=== PATIENT | female | born 1980 | race Caucasian/White ===

== ENCOUNTER 2019-05-21 01:28 | Emergency (ER) | payer SELFPAY ==
[2019-05-21 01:30] VITALS: BP 136/111; PULSE 120; RESP 18; TEMP 36.8; O2SAT 96; BMI 17.2
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
[2019-05-21] MEDS: lidocaine 1% INJ 20 mL 3 ML INTRADERMA (02:23)
[2019-05-21] MEDS: ondansetron 2 mg/ML SDV 2 mL 4 MG IM (02:24)
[2019-05-21 02:26] VITALS: RESP 19
[2019-05-21] MEDS: morphine 4 mg/mL SDV 1 mL IM (02:26)
[2019-05-21] MEDS: tetanus-dipt-pertussis 0.5 mL SDV IM (02:27)
[2019-05-21 02:55] VITALS: BP 131/98; PULSE 111; RESP 18; O2SAT 95
== END 2019-05-21 02:57 | disposition home or self-care (01) ==
LOC: ER 02:42
PROVIDERS: Emergency Provider Nurse Practitioner Family
DX: S01.81XA Laceration without foreign body of other part of head, initial encounter (principal); Y04.2XXA Assault by strike against or bumped into by another person, initial encounter; F17.200 Nicotine dependence, unspecified, uncomplicated; Z23 Encounter for immunization
CPT/HCPCS: 12011; 12345; 70450; 70486; 72125; 72128; 90471; 90715; 96372; 99281; 99283; J2001; J2270; J2405

== ENCOUNTER → 2021-11-20 13:58 | Outpatient (BNVA) | payer MEDICAID, SELFPAY | PROVIDERS: Visit Provider Nurse Practitioner | DX: R10.30 Lower abdominal pain, unspecified (principal) | CPT/HCPCS: 74018 ==

== ENCOUNTER → 2021-11-30 11:44 | Day surgery (SDC) | payer MEDICAID, SELFPAY ==
[2021-11-30 11:55] VITALS: BP 129/81; PULSE 82; RESP 18; TEMP 36.4; O2SAT 98
[2021-11-30 12:14] LABS: Basophils # 0.1 10^3/uL (0.0-0.1); Basophils % 0.8 %; Eosinophils # 0.2 10^3/uL (0.0-0.8); Eosinophils % 2.2 %; Hematocrit 35.7 % (37.0-47.0); Hemoglobin 11.2 g/dL (11.5-15.3); Lymphocytes # 2.7 10^3/uL (0.8-4.8); Mean Corpuscular HGB Conc 31.4 g/dL (30.0-36.0); Mean Corpuscular Hemoglobin 30.4 pg (28.0-34.0); Mean Platelet Volume 8.8 fL (7.4-10.4); Monocytes # 0.6 10^3/uL (0.2-0.9); Monocytes % 5.7 %; Neutrophils # 7.01 10^3/uL (1.8-7.7); Neutrophils % 65.6 %; Nucleated Red Blood Cells % 0 %; Platelet Count 478 10^3/cmm (130-400); Red Blood Count 3.68 10^6/uL (4.1-5.3); Red Cell Distribution Width 15.7 % (12.1-15.1); White Blood Count 10.7 10^3/uL (4.0-10.0)
[2021-11-30 12:51] LABS: Alanine Aminotransferase < 5 U/L (0-33); Albumin Level 2.5 g/dL (3.5-5.2); Alkaline Phosphatase 85 U/L (35-105); Anion Gap 9.7 (5-19); Aspartate Amino Transferase 16 U/L (0-32); Blood Urea Nitrogen 2 mg/dL (6-20); C Reactive Protein 9.6 mg/L (0.0-4.9); Calcium 8.5 mg/dL (8.5-10.5); Carbon Dioxide 28 mmol/L (22-29); Chloride 99 mmol/L (98-107); Globulin 4.5 g/dL (1.3-4.6); Glomerular Filtration Rate 136.6 mL/min (90-130); Glucose 91 mg/dL (65-115); Osmolality Calculated 272 mOsm/kg (285-295); Potassium 3.7 mmol/L (3.5-5.1); Sodium 133 mmol/L (136-145); Total Bilirubin 0.2 mg/dL (0.15-1.2)
== END ==
PROVIDERS: Visit Provider Internal Medicine
DX: R78.81 Bacteremia (principal); K75.0 Abscess of liver
CPT/HCPCS: 36592; 80053; 82248; 85025; 86140

== ENCOUNTER → 2021-12-07 10:18 | Day surgery (SDC) | payer MEDICAID, SELFPAY ==
[2021-12-07 10:38] LABS: Basophils # 0.1 10^3/uL (0.0-0.1); Basophils % 1.3 %; Eosinophils # 0.2 10^3/uL (0.0-0.8); Eosinophils % 2.5 %; Hematocrit 37.8 % (37.0-47.0); Lymphocytes % 25.7 %; Mean Corpuscular HGB Conc 31.7 g/dL (30.0-36.0); Mean Corpuscular Hemoglobin 31.5 pg (28.0-34.0); Mean Corpuscular Volume 99.2 fl (81-99); Mean Platelet Volume 9.2 fL (7.4-10.4); Monocytes # 0.5 10^3/uL (0.2-0.9); Monocytes % 6.6 %; Nucleated Red Blood Cells % 0 %; Platelet Count 304 10^3/cmm (130-400); Red Blood Count 3.81 10^6/uL (4.1-5.3); Red Cell Distribution Width 17.1 % (12.1-15.1); White Blood Count 7.6 10^3/uL (4.0-10.0)
[2021-12-07 10:48] VITALS: BP 130/79; PULSE 79; RESP 18; TEMP 36.9; O2SAT 98
[2021-12-07 11:00] LABS: Alanine Aminotransferase < 5 U/L (0-33); Albumin Level 2.7 g/dL (3.5-5.2); Alkaline Phosphatase 82 U/L (35-105); Anion Gap 10.8 (5-19); Aspartate Amino Transferase 15 U/L (0-32); Blood Urea Nitrogen 2 mg/dL (6-20); Calcium 8.3 mg/dL (8.5-10.5); Carbon Dioxide 25 mmol/L (22-29); Chloride 98 mmol/L (98-107); Globulin 3.8 g/dL (1.3-4.6); Glomerular Filtration Rate 136.6 mL/min (90-130); Glucose 136 mg/dL (65-115); Osmolality Calculated 268 mOsm/kg (285-295); Potassium 3.8 mmol/L (3.5-5.1); Sodium 130 mmol/L (136-145); Total Bilirubin 0.2 mg/dL (0.15-1.2); Total Protein 6.5 g/dL (6.6-8.7)
== END ==
LOC: GILAB 10:19
PROVIDERS: Visit Provider Internal Medicine
DX: R78.81 Bacteremia (principal); K75.0 Abscess of liver
CPT/HCPCS: 36592; 80053; 82248; 85025; 86140

== ENCOUNTER 2021-12-28 10:09 | Outpatient (RCR) | payer MEDICAID, SELFPAY ==
[2021-12-14 10:42] LABS: Basophils # 0.1 10^3/uL (0.0-0.1); Basophils % 1.2 %; Eosinophils # 0.2 10^3/uL (0.0-0.8); Eosinophils % 2.7 %; Hematocrit 39.7 % (37.0-47.0); Hemoglobin 12.4 g/dL (11.5-15.3); Lymphocytes % 24.4 %; Mean Corpuscular HGB Conc 31.2 g/dL (30.0-36.0); Mean Corpuscular Hemoglobin 31.1 pg (28.0-34.0); Mean Corpuscular Volume 99.5 fl (81-99); Mean Platelet Volume 9.4 fL (7.4-10.4); Monocytes # 0.7 10^3/uL (0.2-0.9); Monocytes % 8.2 %; Neutrophils # 5.15 10^3/uL (1.8-7.7); Nucleated Red Blood Cells % 0 %; Platelet Count 211 10^3/cmm (130-400); Red Blood Count 3.99 10^6/uL (4.1-5.3); Red Cell Distribution Width 16.8 % (12.1-15.1); White Blood Count 8.2 10^3/uL (4.0-10.0)
[2021-12-14 10:59] VITALS: BP 145/89; PULSE 82; RESP 18; TEMP 36.7; O2SAT 97
[2021-12-14 11:19] LABS: Alanine Aminotransferase 6 U/L (0-33); Albumin Level 3.1 g/dL (3.5-5.2); Alkaline Phosphatase 82 U/L (35-105); Anion Gap 10.9 (5-19); Aspartate Amino Transferase 14 U/L (0-32); Blood Urea Nitrogen 3 mg/dL (6-20); C Reactive Protein 4.3 mg/L (0.0-4.9); Calcium 8.1 mg/dL (8.5-10.5); Carbon Dioxide 28 mmol/L (22-29); Chloride 95 mmol/L (98-107); Globulin 3.7 g/dL (1.3-4.6); Glomerular Filtration Rate 110.7 mL/min (90-130); Glucose 126 mg/dL (65-115); Osmolality Calculated 268 mOsm/kg (285-295); Potassium 3.9 mmol/L (3.5-5.1); Sodium 130 mmol/L (136-145); Total Bilirubin 0.2 mg/dL (0.15-1.2); Total Protein 6.8 g/dL (6.6-8.7)
[2021-12-21 10:00] VITALS: BP 140/99; PULSE 93; RESP 18; TEMP 36.7; O2SAT 98
[2021-12-21 10:15] LABS: Basophils # 0.1 10^3/uL (0.0-0.1); Basophils % 1.6 %; Eosinophils # 0.2 10^3/uL (0.0-0.8); Eosinophils % 2.6 %; Hematocrit 40.9 % (37.0-47.0); Lymphocytes # 2.2 10^3/uL (0.8-4.8); Lymphocytes % 34.5 %; Mean Corpuscular HGB Conc 31.8 g/dL (30.0-36.0); Mean Corpuscular Hemoglobin 31.1 pg (28.0-34.0); Mean Corpuscular Volume 97.8 fl (81-99); Mean Platelet Volume 8.9 fL (7.4-10.4); Monocytes # 0.7 10^3/uL (0.2-0.9); Monocytes % 10.3 %; Neutrophils # 3.24 10^3/uL (1.8-7.7); Neutrophils % 50.4 %; Nucleated Red Blood Cells % 0 %; Platelet Count 238 10^3/cmm (130-400); Red Blood Count 4.18 10^6/uL (4.1-5.3); Red Cell Distribution Width 16.4 % (12.1-15.1); White Blood Count 6.4 10^3/uL (4.0-10.0)
[2021-12-21 10:37] LABS: Alanine Aminotransferase 6 U/L (0-33); Albumin Level 3.3 g/dL (3.5-5.2); Alkaline Phosphatase 86 U/L (35-105); Anion Gap 13.5 (5-19); Aspartate Amino Transferase 15 U/L (0-32); Blood Urea Nitrogen 3 mg/dL (6-20); CRP High Sensitivity Cardiac < 0.150 mg/dL (0.0-0.3); Calcium 8.2 mg/dL (8.5-10.5); Carbon Dioxide 24 mmol/L (22-29); Chloride 101 mmol/L (98-107); Globulin 3.5 g/dL (1.3-4.6); Glomerular Filtration Rate 176.8 mL/min (90-130); Glucose 80 mg/dL (65-115); Osmolality Calculated 276 mOsm/kg (285-295); Potassium 3.5 mmol/L (3.5-5.1); Sodium 135 mmol/L (136-145); Total Bilirubin 0.2 mg/dL (0.15-1.2); Total Protein 6.8 g/dL (6.6-8.7)
[2021-12-28 10:15] VITALS: BP 131/86; PULSE 95; RESP 18; TEMP 36.7; O2SAT 93
[2021-12-28 10:51] LABS: Basophils # 0.1 10^3/uL (0.0-0.1); Basophils % 0.6 %; Eosinophils # 0.3 10^3/uL (0.0-0.8); Hematocrit 39.2 % (37.0-47.0); Hemoglobin 12.6 g/dL (11.5-15.3); Lymphocytes # 2.5 10^3/uL (0.8-4.8); Lymphocytes % 18.2 %; Mean Corpuscular HGB Conc 32.1 g/dL (30.0-36.0); Mean Corpuscular Hemoglobin 31.4 pg (28.0-34.0); Mean Corpuscular Volume 97.8 fl (81-99); Mean Platelet Volume 9.7 fL (7.4-10.4); Monocytes # 0.8 10^3/uL (0.2-0.9); Monocytes % 6.1 %; Neutrophils # 9.85 10^3/uL (1.8-7.7); Neutrophils % 72.7 %; Nucleated Red Blood Cells % 0 %; Platelet Count 260 10^3/cmm (130-400); Red Blood Count 4.01 10^6/uL (4.1-5.3); Red Cell Distribution Width 15.1 % (12.1-15.1); White Blood Count 13.5 10^3/uL (4.0-10.0)
[2021-12-28 11:04] LABS: Alanine Aminotransferase 13 U/L (0-33); Albumin Level 3.1 g/dL (3.5-5.2); Alkaline Phosphatase 132 U/L (35-105); Anion Gap 11.6 (5-19); Aspartate Amino Transferase 14 U/L (0-32); Blood Urea Nitrogen 4 mg/dL (6-20); C Reactive Protein 14.6 mg/L (0.0-4.9); Calcium 8.7 mg/dL (8.5-10.5); Carbon Dioxide 30 mmol/L (22-29); Chloride 96 mmol/L (98-107); Globulin 3.7 g/dL (1.3-4.6); Glomerular Filtration Rate 246.4 mL/min (90-130); Glucose 91 mg/dL (65-115); Osmolality Calculated 274 mOsm/kg (285-295); Potassium 3.6 mmol/L (3.5-5.1); Sodium 134 mmol/L (136-145); Total Bilirubin 0.2 mg/dL (0.15-1.2); Total Protein 6.8 g/dL (6.6-8.7)
[2022-01-04 10:05] VITALS: BP 153/110; PULSE 112; RESP 18; TEMP 37.1; O2SAT 96
[2022-01-04 10:17] LABS: Basophils # 0.1 10^3/uL (0.0-0.1); Basophils % 0.9 %; Eosinophils # 0.1 10^3/uL (0.0-0.8); Hematocrit 42.6 % (37.0-47.0); Hemoglobin 13.5 g/dL (11.5-15.3); Lymphocytes # 1.8 10^3/uL (0.8-4.8); Lymphocytes % 17.5 %; Mean Corpuscular HGB Conc 31.7 g/dL (30.0-36.0); Mean Corpuscular Hemoglobin 31.1 pg (28.0-34.0); Mean Corpuscular Volume 98.2 fl (81-99); Mean Platelet Volume 8.6 fL (7.4-10.4); Monocytes # 0.7 10^3/uL (0.2-0.9); Monocytes % 7.3 %; Neutrophils # 7.36 10^3/uL (1.8-7.7); Neutrophils % 72.7 %; Nucleated Red Blood Cells % 0 %; Platelet Count 327 10^3/cmm (130-400); Red Blood Count 4.34 10^6/uL (4.1-5.3); Red Cell Distribution Width 15.4 % (12.1-15.1); White Blood Count 10.1 10^3/uL (4.0-10.0)
[2022-01-04 10:38] LABS: Alanine Aminotransferase 7 U/L (0-33); Albumin Level 3.6 g/dL (3.5-5.2); Alkaline Phosphatase 114 U/L (35-105); Anion Gap 12.5 (5-19); Aspartate Amino Transferase 15 U/L (0-32); Blood Urea Nitrogen 4 mg/dL (6-20); Calcium 8.8 mg/dL (8.5-10.5); Carbon Dioxide 26 mmol/L (22-29); Chloride 99 mmol/L (98-107); Creatinine Clr Calc Pharmacy 99.6011; Globulin 3.5 g/dL (1.3-4.6); Glomerular Filtration Rate 136.6 mL/min (90-130); Glucose 119 mg/dL (65-115); Osmolality Calculated 276 mOsm/kg (285-295); Potassium 3.5 mmol/L (3.5-5.1); Sodium 134 mmol/L (136-145); Total Bilirubin 0.2 mg/dL (0.15-1.2); Total Protein 7.1 g/dL (6.6-8.7)
== END 2022-01-06 23:59 | disposition home or self-care (01) ==
LOC: GILAB 10:09
PROVIDERS: Visit Provider Internal Medicine
DX: R78.81 Bacteremia (principal); K75.0 Abscess of liver
CPT/HCPCS: 36592; 80053; 82248; 85025; 86140; 86141

== ENCOUNTER 2022-01-25 09:49 | Outpatient (RCR) | payer MEDICAID, SELFPAY ==
[2022-01-11 10:00] VITALS: BP 145/88; PULSE 80; RESP 18; TEMP 36.8; O2SAT 99
[2022-01-11 10:30] LABS: Basophils # 0.1 10^3/uL (0.0-0.1); Basophils % 1.8 %; Eosinophils # 0.2 10^3/uL (0.0-0.8); Eosinophils % 3.8 %; Hematocrit 40.3 % (37.0-47.0); Hemoglobin 12.9 g/dL (11.5-15.3); Lymphocytes # 1.8 10^3/uL (0.8-4.8); Mean Corpuscular Hemoglobin 31.5 pg (28.0-34.0); Mean Corpuscular Volume 98.3 fl (81-99); Monocytes # 0.5 10^3/uL (0.2-0.9); Monocytes % 9.5 %; Neutrophils % 49.7 %; Nucleated Red Blood Cells % 0 %; Platelet Count 328 10^3/cmm (130-400); Red Cell Distribution Width 14.9 % (12.1-15.1)
[2022-01-11 10:58] LABS: Alanine Aminotransferase 28 U/L (0-33); Albumin Level 3.4 g/dL (3.5-5.2); Alkaline Phosphatase 102 U/L (35-105); Anion Gap 11.7 (5-19); Aspartate Amino Transferase 37 U/L (0-32); Blood Urea Nitrogen 5 mg/dL (6-20); C Reactive Protein 4.2 mg/L (0.0-4.9); Calcium 8.6 mg/dL (8.5-10.5); Carbon Dioxide 28 mmol/L (22-29); Chloride 95 mmol/L (98-107); Globulin 3.1 g/dL (1.3-4.6); Glomerular Filtration Rate 176.8 mL/min (90-130); Glucose 104 mg/dL (65-115); Osmolality Calculated 270 mOsm/kg (285-295); Potassium 3.7 mmol/L (3.5-5.1); Sodium 131 mmol/L (136-145); Total Bilirubin 0.2 mg/dL (0.15-1.2); Total Protein 6.5 g/dL (6.6-8.7)
[2022-01-18 10:00] VITALS: BP 144/90; PULSE 100; RESP 18; TEMP 36.9; O2SAT 98
[2022-01-18 10:13] LABS: Basophils # 0.1 10^3/uL (0.0-0.1); Eosinophils # 0.1 10^3/uL (0.0-0.8); Eosinophils % 1.8 %; Hematocrit 42.3 % (37.0-47.0); Hemoglobin 13.7 g/dL (11.5-15.3); Lymphocytes # 2.2 10^3/uL (0.8-4.8); Lymphocytes % 27.5 %; Mean Corpuscular HGB Conc 32.4 g/dL (30.0-36.0); Mean Corpuscular Hemoglobin 31.4 pg (28.0-34.0); Mean Corpuscular Volume 96.8 fl (81-99); Mean Platelet Volume 9.3 fL (7.4-10.4); Monocytes # 0.5 10^3/uL (0.2-0.9); Monocytes % 6.9 %; Neutrophils # 4.89 10^3/uL (1.8-7.7); Neutrophils % 62.4 %; Nucleated Red Blood Cells % 0 %; Platelet Count 222 10^3/cmm (130-400); Red Blood Count 4.37 10^6/uL (4.1-5.3); Red Cell Distribution Width 14.9 % (12.1-15.1); White Blood Count 7.8 10^3/uL (4.0-10.0)
[2022-01-18 10:54] LABS: Alanine Aminotransferase 31 U/L (0-33); Albumin Level 3.9 g/dL (3.5-5.2); Alkaline Phosphatase 127 U/L (35-105); Aspartate Amino Transferase 64 U/L (0-32); Blood Urea Nitrogen 8 mg/dL (6-20); Calcium 8.9 mg/dL (8.5-10.5); Carbon Dioxide 26 mmol/L (22-29); Chloride 97 mmol/L (98-107); Globulin 3.2 g/dL (1.3-4.6); Glomerular Filtration Rate 136.6 mL/min (90-130); Glucose 87 mg/dL (65-115); Osmolality Calculated 272 mOsm/kg (285-295); Sodium 132 mmol/L (136-145); Total Bilirubin 0.2 mg/dL (0.15-1.2); Total Protein 7.1 g/dL (6.6-8.7)
--- NOTE | 2022-01-22 13:00 | PC.NURSE ---
Nurse from Roxanna To's office called stating patient had CT scan of abdomen and it is ok to discontinue PICC line. Pt has appointment on Tuesday at 0930 for line removal.
[2022-01-25 10:00] VITALS: BP 138/93; PULSE 120; RESP 18; TEMP 36.8; O2SAT 98
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
== END 2022-02-06 23:59 | disposition home or self-care (01) ==
LOC: GILAB 09:49
PROVIDERS: PCP Registered Nurse; Visit Provider Registered Nurse
DX: R78.81 Bacteremia (principal); K75.0 Abscess of liver
CPT/HCPCS: 36592; 80053; 82248; 85025; 86140; 99212

== ENCOUNTER 2022-02-26 01:57 | Emergency (ER) | payer MEDICAID, SELFPAY ==
[2022-02-26 02:01] VITALS: BP 152/110; PULSE 115; RESP 16; TEMP 36.8; O2SAT 99; BMI 16.6
--- NOTE | 2022-02-26 02:06 | ECG_ITS ---
[facility] Test Date: 2022-02-26 Pat Name: Marita Patel Department: Room: Gender: Female [employer] Officer: : 1980 Requested By: Chapito Rincon Order Number: [id number] Gilberto MD: Jesús Cardoso M.D. Measurements Intervals [place] Rate: 116 P: 64 CO: 92 QRS: 70 QRSD: 77 T: 68 QT: 309 QTc: 429 Interpretive Statements SINUS TACHYCARDIA WITH SHORT CO INTERVAL POSSIBLE LEFT ATRIAL ENLARGEMENT [-0.1mV P-WAVE IN V1/V2] POSSIBLE RIGHT VENTRICULAR CONDUCTION DELAY [RSR (QR) IN V1/V2] MINIMAL ST DEPRESSION [0.025+ mV ST DEPRESSION] ABNORMAL RHYTHM ECG No previous ECG available for comparison Electronically Signed On 02-26-2022 14:39:21 FINANCIAL COORDINATOR by Jesús Cardoso M.D. [id number]
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
[2022-02-26] MEDS: sodium chloride 0.9% 1,000 ML 999 ML IV (02:18)
[2022-02-26] MEDS: LORazepam 2 mg/mL INJ 1 mL 1 MG IVP (02:18)
[2022-02-26 02:21] LABS: Basophils # 0.1 10^3/uL (0.0-0.1); Basophils % 1.4 %; Eosinophils # 0.2 10^3/uL (0.0-0.8); Eosinophils % 1.8 %; Hematocrit 43.7 % (37.0-47.0); Hemoglobin 14.4 g/dL (11.5-15.3); Lymphocytes # 2.8 10^3/uL (0.8-4.8); Lymphocytes % 31.2 %; Mean Corpuscular Hemoglobin 30.8 pg (28.0-34.0); Mean Corpuscular Volume 93.4 fl (81-99); Mean Platelet Volume 9.6 fL (7.4-10.4); Monocytes # 0.5 10^3/uL (0.2-0.9); Monocytes % 5.4 %; Neutrophils # 5.32 10^3/uL (1.8-7.7); Nucleated Red Blood Cells % 0 %; Platelet Count 206 10^3/cmm (130-400); Red Blood Count 4.68 10^6/uL (4.1-5.3); Red Cell Distribution Width 12.4 % (12.1-15.1); White Blood Count 8.9 10^3/uL (4.0-10.0)
[2022-02-26 02:33] LABS: INR 1.08 (0.8-1.2)
[2022-02-26 02:40] LABS: Troponin(5th) Baseline 6 ng/L (0-10)
[2022-02-26 02:42] LABS: Alanine Aminotransferase 20 U/L (0-33); Albumin Level 4.1 g/dL (3.5-5.2); Alkaline Phosphatase 93 U/L (35-105); Aspartate Amino Transferase 24 U/L (0-32); Blood Urea Nitrogen 3 mg/dL (6-20); Calcium 7.8 mg/dL (8.5-10.5); Carbon Dioxide 22 mmol/L (22-29); Chloride 103 mmol/L (98-107); Globulin 2.5 g/dL (1.3-4.6); Glomerular Filtration Rate 176.8 mL/min (90-130); Glucose 94 mg/dL (65-115); Osmolality Calculated 280 mOsm/kg (285-295); Sodium 137 mmol/L (136-145); Total Bilirubin 0.2 mg/dL (0.15-1.2); Total Protein 6.6 g/dL (6.6-8.7)
[2022-02-26 02:44] LABS: Anion Gap 15.7 (5-19)
[2022-02-26 02:45] LABS: Potassium 3.7 mmol/L (3.5-5.1)
[2022-02-26 03:15] VITALS: BP 113/84; PULSE 120; RESP 16; O2SAT 96
[2022-02-26] MEDS: morphine 4 mg/mL SDV 1 mL IVP (03:19)
[2022-02-26] MEDS: ondansetron 2 mg/ML SDV 2 mL 4 MG IVP (03:19)
[2022-02-26] MEDS: HYDROcodone-acetaminophen 5-325 mg Tablet 1 TAB PO (04:07)
--- NOTE | 2022-02-26 04:07 | ECG_ITS ---
[facility] Test Date: 2022-02-26 Pat Name: Marita Patel Department: Room: Gender: Female Selling Manager: : 1980 Requested By: Chapito Rincon Order Number: [id number] Gilberto MD: Jesús Cardoso M.D. Measurements Intervals [place] Rate: 113 P: 65 OK: 108 QRS: 79 QRSD: 85 T: 73 QT: 320 QTc: 440 Interpretive Statements SINUS TACHYCARDIA WITH SHORT OK INTERVAL POSSIBLE LEFT ATRIAL ENLARGEMENT [-0.1mV P-WAVE IN V1/V2] POSSIBLE RIGHT VENTRICULAR CONDUCTION DELAY [RSR (QR) IN V1/V2] ABNORMAL RHYTHM ECG Compared to ECG 02/26/2022 02:06:10 ST (T wave) deviation no longer present Electronically Signed On 02-26-2022 14:42:21 UTILITY WORKER DRIVER by Jesús Cardoso M.D. [id number]
[2022-02-26 04:15] VITALS: BP 142/100; PULSE 109; RESP 16; O2SAT 98
[2022-02-26 04:33] LABS: Troponin 5 2HR Delta 0 ABS# (0-10)
== END 2022-02-26 04:56 | disposition home or self-care (01) ==
PROVIDERS: Emergency Provider Emergency Medicine; PCP Registered Nurse
DX: R07.9 Chest pain, unspecified (principal); F17.210 Nicotine dependence, cigarettes, uncomplicated
CPT/HCPCS: 71045; 72125; 80053; 84484; 85025; 85610; 93005; 96374; 96375; 99285; J2060; J2270; J2405; J7030

== ENCOUNTER 2022-04-02 08:29 | Outpatient (CLI) | payer MEDICAID, SELFPAY ==
--- NOTE | 2022-04-02 08:41 | USCV_ITS ---
Marita Patel Age: 41 Gender: F : 1980 Exam Date: 04/02/2022 08:48 Ordering Phys: Roxanna Stephenson Technologist: CHEIKH [place] [facility] [place]: CHEST PAIN BP: 121 / 89 HR: 122 Rhythm: Sinus Technical Quality: Very technically difficult study MEASUREMENTS (Male / Female) Normal Values 2D ECHO LVOT Diameter 2.0 cm LV Ejection Fraction MOD 2C 67.9 % LV Ejection Fraction 2C AL 68.7 % LA Diameter 1.7 cm LA Width 2.3 cm LA Height 2.0 cm RA Width 2.2 cm RA Height 2.5 cm Aorta at Sinotubular Diameter 2.1 cm IVC Diameter 1.3 cm DOPPLER Right Atrial Pressure 3.0 mmHg FINDINGS Left Ventricle Left ventricle is normal in size. LV systolic function is normal with EF of 60-65 %. No regional wall motion abnormalities are seen. Right Ventricle Normal in size and function Right Atrium Normal in size Left Atrium Normal in size Mitral Valve Grossly normal Aortic Valve Well-visualized Tricuspid Valve Not visualized Pulmonic Valve Not realized Pericardium Grossly normal Aorta Not well visualized IVC Not visualized CONCLUSIONS Technically limited quality echocardiogram because of poor ultrasonic windows and tachycardia. LV systolic function is normal with EF of 60-65% Valvular structures are not well visualized. No comparison studies are available Jesús Cardoso MD (Electronically Signed) Final Date: 02 April 2022 15:00 S
== END 2022-04-02 08:30 | disposition home or self-care (01) ==
LOC: RAD 08:33
PROVIDERS: PCP Registered Nurse; Visit Provider Registered Nurse
DX: R07.9 Chest pain, unspecified (principal); R00.0 Tachycardia, unspecified
CPT/HCPCS: 93306